=== PATIENT | female | born 1995 | race Hispanic/Latino ===

== ENCOUNTER 2022-09-14 19:06 | Emergency (ER) | payer OTHER, MEDICAID ==
[~2022-09-14] VITALS: Ht 167.6 cm; Wt 68.0 kg
[2022-09-14 20:41] VITALS: BP 140/58
[2022-09-14] MEDS ORDERED: GUAIF10 PO (22:22)
[2022-09-14] MEDS ORDERED: ACET-66 PO (22:22)
[2022-09-14] MEDS ORDERED: IBUP-2070 PO (22:22)
== END 2022-09-14 22:35 | disposition home or self-care (01) ==
LOC: EDH 19:06
DX: U07.1 COVID-19 (principal); J11.1 Influenza due to unidentified influenza virus with other respiratory manifestations; F41.9 Anxiety disorder, unspecified; J45.909 Unspecified asthma, uncomplicated
CPT/HCPCS: 99283; 87635; 87804 ×2; C9803

== ENCOUNTER 2024-05-25 06:54 | Emergency (ER) | payer BC, MEDICAID, OTHER ==
[~2024-05-25] VITALS: Ht 167.6 cm; Wt 70.8 kg
[~2024-05-25 06:54] MED LIST: ACET-66 PO; GUAIF10 PO; IBUP-2070 PO
[2024-05-25 07:15] LABS: BASOPHILS # (AUTO) 0.03 K/uL (0.00-0.20); BASOPHILS % (AUTO) 0.4 % (0.0-5.0); EOSINOPHILS # (AUTO) 0.03 K/uL (0.00-0.70); EOSINOPHILS % (AUTO) 0.4 % (0.0-8.0); HEMATOCRIT 43.6 % (36-48); IMMATURE GRANULOCYTE ABSOLUTE 0.03 K/uL (0-1); LYMPHOCYTES # (AUTO) 2.8 K/uL (1.0-4.8); LYMPHOCYTES % (AUTO) 35.3 % (21.0-51.0); MEAN CORPUSCULAR HEMOGLOBIN 28.4 pg (27.0-33.0); MEAN CORPUSCULAR HGB CONC 33.7 g/dL (32.0-36.0); MEAN CORPUSCULAR VOLUME 84.2 fL (79-99); MONOCYTES # (AUTO) 0.5 K/uL (0.1-1.0); NEUTROPHILS # (AUTO) 4.5 K/uL (1.8-7.7); NEUTROPHILS % (AUTO) 57.5 % (40.0-77.0); PLATELET COUNT (AUTO) 282 K/uL (130-400); RED BLOOD CELL COUNT(AUTO) 5.18 MIL/uL (4.00-5.50); RED CELL DISTRIBUTION WIDTH 11.9 % (11.0-15.5); WHITE BLOOD COUNT (AUTO) 7.9 K/uL (4.8-10.8)
[2024-05-25 07:23] LABS: CREATININE 0.7 mg/dL (0.5-1.0); POTASSIUM 3.4 mmol/L (3.5-5.1)
[2024-05-25 07:29] LABS: APPEARANCE,URINE CLEAR (CLEAR); BILIRUBIN,URINE NEGATIVE (NEGATIVE); COLOR,URINE COLORLESS (YELLOW); GLUCOSE, URINE (UA) NEGATIVE (NEGATIVE); KETONES,URINE NEGATIVE (NEGATIVE); LEUKOCYTE ESTERASE ,URINE NEGATIVE Leu/uL (NEGATIVE); NITRATE,URINE NEGATIVE (NEGATIVE); OCCULT BLOOD,URINE NEGATIVE (NEGATIVE); PH,URINE 6.5 (5.0-8.0); PROTEIN,URINE NEGATIVE (NEGATIVE); UROBILINOGEN,URINE 0.2 mg/dL (0.2-1.0)
[2024-05-25 07:31] LABS: ADD UA MICROSCOPIC NO
[2024-05-25 07:52] LABS: B-TYPE NATRIURETIC PEPTIDE < 5 pg/mL (0-100)
[2024-05-25] MEDS: KCL 20 MEQ ERTAB PO ONE (08:40)
[2024-05-25] MEDS: ONDANSETRON 4MG INJ ONE (08:51)
[2024-05-25] MEDS: FAMOTIDINE 20MG VIAL IV ONE ×2 (08:51)
[2024-05-25] MEDS: ONDANSETRON 4MG INJ IVP ONE (08:51)
[2024-05-25] MEDS ORDERED: ONDA22I PO (09:14)
[2024-05-25 09:33] VITALS: BP 126/81; PULSE 85; RESP 14; TEMP 98; O2SAT 98
== END 2024-05-25 09:34 | disposition home or self-care (01) ==
LOC: EDH 06:54
DX: S29.011A Strain of muscle and tendon of front wall of thorax, initial encounter (principal); R07.89 Other chest pain; K29.70 Gastritis, unspecified, without bleeding; R11.2 Nausea with vomiting, unspecified; R00.2 Palpitations; J45.909 Unspecified asthma, uncomplicated; Z79.899 Other long term (current) drug therapy; X58.XXXA Exposure to other specified factors, initial encounter; Y93.89 Activity, other specified; Y92.89 Other specified places as the place of occurrence of the external cause; Y99.8 Other external cause status
CPT/HCPCS: 99284; 96374; 71045; 96375; 82550; 84484 ×2; 80048; 83880; 85025; 81003; 81025; 36415; 93005; J3490; J2405

== ENCOUNTER 2025-01-08 12:34 | Emergency (ER) | payer BC, MEDICAID ==
[~2025-01-08] VITALS: Ht 167.6 cm; Wt 67.1 kg
[~2025-01-08 12:34] MED LIST changes: +GUAI100L96 PO; -GUAIF10 PO; +ONDA22I PO
--- NOTE | 2025-01-08 13:03 | ERN ---
ED Note History of Present Illness Stated Complaint: PALPITATION,MULTIPLE COMPLAINTS Time Seen by MD: 12:35 Dictation: PATIENT IS A 29-YEAR-OLD FEMALE COMING IN TODAY WITH SEVERAL COMPLAINTS 1ST COMPLAINT IS SHE HAS GOT A GENERALIZED HEADACHE WITH NAUSEA SHE HAS HAD SINCE LAST WEEK. SHE STATES SHE HAS A HISTORY OF CHRONIC HEADACHES, TAKES IBUPROFEN [id number], STATES IT IS NOT HELPING AT THIS TIME. STATES SHE HAS SEEN HER DOCTOR IN THE PAST HOWEVER HE HAS NEVER REFERRED TO NEUROLOGY. SHE ALSO STATES SHE IS HAVING SOME HEART PALPITATIONS WITHOUT CHEST PAIN BACK PAIN NO SOB STATES SHE HAS A HISTORY OF SVT. Allergies: Coded Allergies: No Known Allergies (Unverified Allergy, Unknown, 09/14/22) Home Meds Active Scripts Ondansetron HCl (Zofran) 4 Mg/2 Ml Inj, 4 MG PO QID PRN for PRN for 10 Days, #40 ML Prov:ARTIE GAXIOLA MD 05/25/24 Acetaminophen (Tylenol) 500 Mg Tab, 500 MG PO Q4PRN PRN for FEVER, #30 TAB Prov:FITTINGISI [facility] 09/14/22 Ibuprofen (Ibuprofen) 600 Mg Tablet, 600 MG PO Q6H PRN for PAIN, #15 TAB Prov:FITTINGISI [facility] 09/14/22 Guaifenesin (Robitussin Syrp) 100 Mg/5 Ml Syrp, 200 MG PO Q4PRN PRN for COUGH/COLD SYMPTOMS, #300 ML Prov:FITTINGISIP 09/14/22 Past Medical History Past Medical History: Asthma, Other Additional Past Medical Hx: HX OF SVT Surgical History: None History: Not Applicable RN Note Reviewed/Agreed w/PFSH: Yes Review of System Dictation CONSTITUTIONAL: NEGATIVE EXCEPT FOR HPI HEAD/FACE: NEGATIVE EXCEPT FOR HPI EENT: NEGATIVE EXCEPT FOR HPI RESPIRATORY: NEGATIVE EXCEPT FOR HPI PALPITATIONS GASTROINTESTINAL/ABDOMINAL: NEGATIVE EXCEPT FOR HPI GENITOURINARY: NEGATIVE EXCEPT FOR HPI MUSCULOSKELETAL: NEGATIVE EXCEPT FOR HPI INTEGUMENTARY: NEGATIVE EXCEPT FOR HPI NEUROLOGICAL/PSYCH: NEGATIVE EXCEPT FOR HPI GENERALIZED HEADACHE HEMATOLOGIC/LYMPHATIC: NEGATIVE EXCEPT FOR HPI ALL SYSTEMS NEGATIVE, EXCEPT NOTED ABOVE. 13 POINT REVIEW OF SYSTEMS ASSESSED AND ALL NEGATIVE EXCEPT FOR ABOVE. Initial Vital Sign VS Vital Signs Date Time Temp Pulse Resp B/P (MAP) Pulse Ox O2 Delivery O2 Flow Rate FiO2 01/08/25 13:05 99.1 121 20 136/85 98 0 01/08/25 15:24 Room Air* 21 Physical Exam Dictation VITAL SIGNS REVIEWED GENERAL APPEARANCE: ALERT, ORIENTED X 3, NO ACUTE DISTRESS, WELL DEVELOPED, NOURISHED. HEAD AND FACE: NON-TRAUMATIC. EYES: PERRL, PINK CONJUNCTIVAS, EYELID NO TRAUMA, ANTERIOR CHAMBER WITH ARCUS SENILIS. EARS: PINNAS INTACT AND NO SIGNS OF TRAUMA OR ERYTHEMA EAR CANALS CLEAR AND NO DISCHARGE TM NO ERYTHEMA NOSE: NO DISCHARGE, NO BLEEDING. OROPHARYNX: MOUTH NORMAL, TONGUE PINK, PHARYNX CLEAR,NO ERYTHEMA, TONSILS NO EXUDATES, NO ABSCESSES NOTED, MUCOUS MEMBRANE MOIST NECK: SUPPLE, NON-TENDER, NO THYROMEGALY, NO MASSES, NO JVD, NO BRUITS BREAST:DEFERRED CHEST:NO TENDERNESS, NO CREPITUS, NO PARADOXICAL MOVEMENT, NO RETRACTIONS LUNGS:CLEAR, WELL-VENTILATED, SYMMETRIC, NO RALES, NO WHEEZING, NO RHONCHI, NO STRIDOR, GOOD BREATH SOUNDS BILATERALLY HEART: REGULAR RATE, REGULAR RHYTHM, NO MURMUR, NO GALLOPS VASCULAR: NO PERIPHERAL EDEMA, ABDOMEN: SOFT, POSITIVE BOWEL SOUNDS, NONDISTENDED, NO GUARDING, NONTENDER, NO REBOUND, NO MASSES NO HEPATOMEGALY, NO SPLENOMEGALY, NO BOX'S SIGN, NO HERNIAS. RECTAL: DEFERRED GENITAL: DEFERRED NEUROLOGICAL: NORMAL SPEECH, MOTOR FUNCTION INTACT, SENSORY FUNCTION INTACT MUSCULOSKELETAL: NECK NONTENDER, FULL RANGE OF MOTION, BACK NONTENDER, FULL RANGE OF MOTION, EXTREMITIES: NONTENDER, FULL RANGE OF MOTION SKIN: COLOR PINK, DRY, NO TURGOR, NO RASH, NO LACERATIONS, NO ABRASIONS, NO CONTUSIONS. LYMPHATIC: DEFERRED Results (Laboratory/Radiology) Laboratory/Radiology Laboratory Tests Test 01/08/25 13:20 01/08/25 13:22 Influenza Type A Antigen Negative For Type A Influenza Type B Antigen Negative For Type B SARS-CoV-2 Antigen (Rapid) PRESUMPTIVE NEGATIVE Group A Streptococcus Rapid negative (NEGATIVE) White Blood Count 11.0 K/uL (4.8-10.8) H Red Blood Count 5.04 MIL/uL (4.00-5.50) Hemoglobin 14.1 g/dL (12.0-16.0) Hematocrit 43.3 % (36-48) Mean Corpuscular Volume 85.9 fL (79-99) Mean Corpuscular Hemoglobin 28.0 pg (27.0-33.0) Mean Corpuscular Hemoglobin Concent 32.6 g/dL (32.0-36.0) Red Cell Distribution Width 12.2 % (11.0-15.5) Platelet Count 312 K/uL (130-400) Mean Platelet Volume 9.7 fL (7.5-10.5) Immature Granulocyte % (Auto) 0.5 % (0-1) Neutrophils (%) (Auto) 79.1 % (40.0-77.0) H Lymphocytes (%) (Auto) 14.0 % (21.0-51.0) L Monocytes (%) (Auto) 5.5 % (3.0-13.0) Eosinophils (%) (Auto) 0.6 % (0.0-8.0) Basophils (%) (Auto) 0.3 % (0.0-5.0) Neutrophils # (Auto) 8.7 K/uL (1.8-7.7) H Lymphocytes # (Auto) 1.5 K/uL (1.0-4.8) Monocytes # (Auto) 0.6 K/uL (0.1-1.0) Eosinophils # (Auto) 0.07 K/uL (0.00-0.70) Basophils # (Auto) 0.03 K/uL (0.00-0.20) Absolute Immature Granulocyte (auto 0.05 K/uL (0-1) Nucleated Red Blood Cells 0.0 % (0.0-0.19) Sodium Level 140 mmol/L (136-145) Potassium Level 3.6 mmol/L (3.5-5.1) Chloride Level 104 mmol/L (101-111) Carbon Dioxide Level 27 mmol/L (21-32) Blood Urea Nitrogen 8 mg/dL (7-18) Creatinine 0.5 mg/dL (0.5-1.0) Glomerular Filtration Rate Calc 130 mL/min (>90) Random Glucose 86 mg/dL (70-105) Total Calcium 8.8 mg/dL (8.5-10.1) Troponin I High Sensitivity < 4 ng/L (4-50) L Serum Test, Qualitative NEGATIVE (NEGATIVE) Labs Reviewed?: Yes EKG Comment: EKG SINUS TACHYCARDIA/HEART RATE 121/OCCASIONAL SVT, AXIS NORMAL ED Course ED Course Orders Procedure Category Date Status Time Covid19 (Sars Antigen LAB 01/08/25 Complete Rapid) 13:00 Influenza Type A & B, LAB 01/08/25 Complete Rapid 13:00 Rapid (Group A Strep) LAB 01/08/25 Complete 13:00 Testing, LAB 01/08/25 Complete Serum Hcg 13:00 Cbc With Differential LAB 01/08/25 Complete 13:00 Troponin I High LAB 01/08/25 Complete Sensitivity 13:00 12 Lead Ekg Tracing- EKG 01/08/25 Resulted Technical 13:00 Basic Metabolic Panel LAB 01/08/25 Complete 13:00 Metoprolol Tartrate PHA 01/08/25 Complete (Lopressor) 13:30 Current Medications Medications (Trade) Dose Ordered Sig/Didier Route PRN Reason Start Time Stop Time Status Last Admin Dose Admin Metoprolol Tartrate (loprESSOR) 5 mg ONCE ONCE IV 01/08/25 13:30 01/08/25 13:31 DC Vital Signs Date Time Temp Pulse Resp B/P (MAP) Pulse Ox O2 Delivery O2 Flow Rate FiO2 01/08/25 16:45 102 16 124/68 100 Room Air* 0 21 01/08/25 15:24 93 156/86 01/08/25 15:24 99.5 93 16 156/86 100 Room Air* 0 01/08/25 13:05 99.1 121 20 136/85 98 0 Heart rate 95-102 patient refused metoprolol states she will follow up with her primary care doctor however states she no longer has palpitations Medical Decision Making MDM Medical decision-making based on chest x-ray labs and treatment for tachycardia Patient refused metoprolol She said she felt better and said she will follow up with her primary care doctor DX & DISP Disposition: Discharge Departure Impression: Primary Impression: Sinus tachycardia Additional Impression: Palpitations Condition: Stable Additional Instructions: Follow-up with primary care provider in 1 to 2 days. Take medications as directed here in the emergency room. Okay to continue home medications unless otherwise discussed during your visit in the emergency room today. Return to your nearest emergency room if symptoms worsen or if there is no improvement. Call 911 if you need immediate assistance. Take Tylenol or Motrin [id number] as needed and if no contraindications are present. Increase oral hydration. A wound culture or urine culture was ordered here in the emergency room department please follow-up with primary care provider and advise them to get repeat ports from our facility. If you had any Alexis wrap/splints that were applied here, please do not remove them until you see your primary care or specialty. Avoid all coffee or ice tea or any stimulants. Follow up with your primary care doctor or infection control nurse for manage Referrals: STACY GIVENS MD (PCP) Time of Disposition: 17:52 I have reviewed the case, and I agree with, Diagnosis and Plan I performed the substantive portion of the visit. I have reviewed and p ersonally made and approve the management plan that is documented in the notes by myself or the LELIA. I acknowledge full responsibility for the patient's management plan. DAY GARNETT NP Jan 08, 2025 13:03 BALDEMAR HERNANDEZ MD Jan 08, 2025 18:48
--- NOTE | 2025-01-08 13:13 | EKG ---
[facility] Test Date: 2025-01-08 Test Time: 13:11:17 Pat Name: KIMMIE GONZALEZ Department: ED Room: Gender: F Pca: [id number] : 1995 Requested By: DAY GARNETT Order Number: [id number] Reading MD: Ranjith Walters Measurements Intervals [place] Rate: 121 P: 68 AL: 162 QRS: 41 QRSD: 74 T: 52 QT: 305 QTc: 430 Interpretive Statements Sinus tachycardia Multiple ventricular premature complexes Compared to ECG 05/25/2024 06:56:52 Ventricular premature complex(es) now present Left-axis deviation no longer present Electronically Signed On 01-08-2025 17:54:08 CDT by Ranjith Walters Please click the below link to view image of tracing.
[2025-01-08 13:35] LABS: BASOPHILS # (AUTO) 0.03 K/uL (0.00-0.20); BASOPHILS % (AUTO) 0.3 % (0.0-5.0); EOSINOPHILS # (AUTO) 0.07 K/uL (0.00-0.70); EOSINOPHILS % (AUTO) 0.6 % (0.0-8.0); HEMATOCRIT 43.3 % (36-48); IMMATURE GRANULOCYTE ABSOLUTE 0.05 K/uL (0-1); LYMPHOCYTES # (AUTO) 1.5 K/uL (1.0-4.8); MEAN CORPUSCULAR HGB CONC 32.6 g/dL (32.0-36.0); MEAN CORPUSCULAR VOLUME 85.9 fL (79-99); MONOCYTES # (AUTO) 0.6 K/uL (0.1-1.0); MONOCYTES % (AUTO) 5.5 % (3.0-13.0); NEUTROPHILS # (AUTO) 8.7 K/uL (1.8-7.7); NEUTROPHILS % (AUTO) 79.1 % (40.0-77.0); PLATELET COUNT (AUTO) 312 K/uL (130-400); RED BLOOD CELL COUNT(AUTO) 5.04 MIL/uL (4.00-5.50); RED CELL DISTRIBUTION WIDTH 12.2 % (11.0-15.5)
[2025-01-08 13:39] LABS: CREATININE 0.5 mg/dL (0.5-1.0); POTASSIUM 3.6 mmol/L (3.5-5.1)
[2025-01-08 13:44] LABS: RAPID GROUP A STREP negative (NEGATIVE)
[2025-01-08 13:54] LABS: INFLUENZA TYPE A Negative For Type A (NEGATIVE); INFLUENZA TYPE B Negative For Type B (NEGATIVE)
[2025-01-08 13:55] LABS: COVID19 (SARS ANTIGEN RAPID) PRESUMPTIVE NEGATIVE (NEGATIVE)
[2025-01-08 15:24] VITALS: TEMP 99.5
[2025-01-08] MEDS: metoPROLOL tartRATE 1 MG/ML 5ML VIAL IV ONE (15:24)
[2025-01-08 16:45] VITALS: BP 124/68; PULSE 102; RESP 16; O2SAT 100
== END 2025-01-08 18:11 | disposition home or self-care (01) ==
LOC: EDH 12:34
DX: R00.0 Tachycardia, unspecified (principal); R00.2 Palpitations; J45.909 Unspecified asthma, uncomplicated; Z20.822 Contact with and (suspected) exposure to COVID-19
CPT/HCPCS: 36415; 80048; 84484; 84703; 85025; 87426; 87804; 87880; 93005; 99284